=== PATIENT | male | born 1965 | race Hispanic/Latino ===

== ENCOUNTER 2020-12-02 23:21 | Emergency (ER) | payer BC ==
[~2020-12-02] VITALS: Ht 185.4 cm; Wt 130.6 kg
[~2020-12-02 23:21] MED LIST: ACET1TAB12 PO; LISI20TA24 PO
[2020-12-03 00:22] VITALS: BP 133/63
[2020-12-03 01:08] LABS: BASOPHILS % (AUTO) 0.4 % (0.0-5.0); EOSINOPHILS % (AUTO) 1.4 % (0.0-8.0); HEMATOCRIT 45.1 % (42-54); LYMPHOCYTES % (AUTO) 16.5 % (21.0-51.0); MEAN CORPUSCULAR HEMOGLOBIN 30.2 pg (27.0-33.0); MEAN CORPUSCULAR HGB CONC 33.3 g/dL (32.0-36.0); MEAN CORPUSCULAR VOLUME 90.7 fL (79-99); MONOCYTES % (AUTO) 5.6 % (3.0-13.0); PLATELET COUNT (AUTO) 177 K/uL (130-400); RED BLOOD CELL COUNT(AUTO) 4.97 MIL/uL (4.50-6.20); RED CELL DISTRIBUTION WIDTH 14.3 % (11.0-15.5); WHITE BLOOD COUNT (AUTO) 9.9 K/uL (4.8-10.8)
[2020-12-03 01:18] LABS: CREATININE 2.8 mg/dL (0.5-1.5)
[2020-12-03 01:23] LABS: B-TYPE NATRIURETIC PEPTIDE 18 pg/mL (0-100)
[2020-12-03 01:31] LABS: ALBUMIN 3.2 g/dL (3.5-5.0); BILIRUBIN,TOTAL 0.5 mg/dL (0.2-1.0); MAGNESIUM 2.1 mg/dL (1.80-2.40); THYROID STIMULATING HORMONE 2.32 uIU/mL (0.36-3.74); TOTAL PROTEIN, SERUM 6.6 g/dL (6.0-8.3)
[2020-12-03 01:39] VITALS: BP 149/93
[2020-12-03 02:54] VITALS: BP 133/81
[2020-12-03 04:00] VITALS: BP 139/72
[2020-12-03] MEDS ORDERED: 0.9%NACL 1000ML 1,000 ML IV ONE (04:30)
[2020-12-03 05:17] LABS: APPEARANCE,URINE Clear (CLEAR); BILIRUBIN,URINE Negative (NEGATIVE); COLOR,URINE Yellow (YELLOW); GLUCOSE, URINE (UA) TRACE mg/dL (NEGATIVE); KETONES,URINE Negative (NEGATIVE); LEUKOCYTE ESTERASE ,URINE Negative (NEGATIVE); NITRATE,URINE Negative (NEGATIVE); OCCULT BLOOD,URINE Trace (NEGATIVE); PROTEIN,URINE POS 2+ mg/dL (NEGATIVE); UROBILINOGEN,URINE 0.2 mg/dL (0.2-1.0)
[2020-12-03 05:22] VITALS: BP 140/70
[2020-12-03 05:26] LABS: BACTERIA,URINE None Seen /HPF (None Seen); RBC,URINE 0-1 /HPF (0-1); SQUAMOUS EPITHELIAL CELL,UR Rare /HPF (0-2); WBC,URINE 0-1 /HPF (0-1)
== END 2020-12-03 05:46 | disposition home or self-care (01) ==
LOC: EDH 23:42
DX: N28.9 Disorder of kidney and ureter, unspecified (principal); R60.0 Localized edema; R80.9 Proteinuria, unspecified; E11.9 Type 2 diabetes mellitus without complications; E78.00 Pure hypercholesterolemia, unspecified; Z96.652 Presence of left artificial knee joint; Z98.890 Other specified postprocedural states; Z91.010 Allergy to peanuts; Z79.899 Other long term (current) drug therapy
CPT/HCPCS: 36415; 71045; 80053; 81001; 83735; 83880; 84443; 84484; 85025; 93005; 93970

== ENCOUNTER 2021-10-15 00:27 | Emergency (ER) | payer BC ==
[~2021-10-15] VITALS: Ht 182.9 cm; Wt 129.3 kg
[2021-10-15 00:35] VITALS: BP 128/77
[2021-10-15] MEDS ORDERED: IBUP-1493 PO (02:34)
== END 2021-10-15 03:26 | disposition home or self-care (01) ==
LOC: EDH 00:27
DX: S43.422A Sprain of left rotator cuff capsule, initial encounter (principal); E11.9 Type 2 diabetes mellitus without complications; E78.00 Pure hypercholesterolemia, unspecified; I10 Essential (primary) hypertension; Z91.010 Allergy to peanuts; Z79.899 Other long term (current) drug therapy; Z90.49 Acquired absence of other specified parts of digestive tract; Z98.890 Other specified postprocedural states; W10.9XXA Fall (on) (from) unspecified stairs and steps, initial encounter; Y93.01 Activity, walking, marching and hiking; Y92.89 Other specified places as the place of occurrence of the external cause; Y99.8 Other external cause status
CPT/HCPCS: 73030

== ENCOUNTER 2022-10-02 00:01 | Emergency (ER) | payer BC ==
[~2022-10-02] VITALS: Ht 185.4 cm; Wt 132.0 kg
[~2022-10-02 00:01] MED LIST changes: +IBUP-1493 PO
[2022-10-02 00:04] VITALS: BP 150/81
[2022-10-02] MEDS ORDERED: MORPHINE 2 MG SYG IM ONE (02:00)
[2022-10-02] MEDS ORDERED: GABA300C PO (03:18)
[2022-10-02] MEDS ORDERED: CYCL-309 PO (03:18)
[2022-10-02] MEDS ORDERED: IBUP-1493 PO (03:18)
== END 2022-10-02 03:32 | disposition home or self-care (01) ==
LOC: EDH 00:01
DX: M54.40 Lumbago with sciatica, unspecified side (principal); I10 Essential (primary) hypertension; E11.9 Type 2 diabetes mellitus without complications; E78.00 Pure hypercholesterolemia, unspecified; Z79.1 Long term (current) use of non-steroidal anti-inflammatories (NSAID); Z79.899 Other long term (current) drug therapy; Z90.49 Acquired absence of other specified parts of digestive tract; Z98.890 Other specified postprocedural states; Z91.010 Allergy to peanuts
CPT/HCPCS: 99284; 72125; 72131; 96372; J2270

== ENCOUNTER → 2024-01-09 | Outpatient (CLI) | payer OTHER ==
[~2024-01-09] MED LIST changes: -ACET1TAB12 PO; +FOLI0.8T2 PO; -IBUP-1493 PO; -LISI20TA24 PO; +LOVA20TA3 PO; +TIRZ10PE SQ
== END | disposition home or self-care (01) ==
LOC: RAH 13:35
PROVIDERS: ATTEND Internal Medicine Cardiovascular Disease
DX: Z13.6 Encounter for screening for cardiovascular disorders (principal)
CPT/HCPCS: 75571